=== PATIENT | male | born 1955 | race Caucasian/White ===

== ENCOUNTER → 2017-11-19 | Outpatient (CLI) | payer OTHER ==
[~2017-11-19] MED LIST: ALLOPURINOL 10100 M1 PO; ASPIR 8181 MG PO; BRILINTA90 MG PO; CRESTOR10 MG PO; FLOMAX0.4 MG PO; FLOVENT DISKUS50 MCG INH; GLIPIZIDE 10 MG10 MG PO; GLIPIZIDE-METF1 EAC1 PO; GLUCOTROL5 MG PO; HYDROCODONE-APA1 TA1 PO; IMDUR 60 MG TAB60 M1 PO; LASIX 40 MG TAB40 M2 PO; LIPITOR 20 MG T20 M1 PO; LYRICA150 MG PO; MELATONIN3 MG PO; NITROGLYCERIN0.4 MG SUBLING; POTASSIUM20 PO; PRINIVIL20 M1 PO; RANEXA500 MG PO; TENORMIN50 MG PO; VITAMIN B122500 MCG PO; XANAX1 MG PO; ZOLPIDEM TARTRA10 MG PO
== END ==
LOC: M.RAD 16:41
DX: J98.4 Other disorders of lung (principal); Z95.818 Presence of other cardiac implants and grafts

== ENCOUNTER → 2018-04-24 | Outpatient (CLI) | payer OTHER | LOC: M.ULTRA 04-22 11:30 | DX: R10.11 Right upper quadrant pain (principal); R11.0 Nausea; I10 Essential (primary) hypertension; E11.9 Type 2 diabetes mellitus without complications; I25.10 Atherosclerotic heart disease of native coronary artery without angina pectoris; Z90.49 Acquired absence of other specified parts of digestive tract ==

== ENCOUNTER → 2021-09-15 | Outpatient (CLI) | payer OTHER ==
[2021-09-15] VITALS (7 sets, daily range): BP systolic 96–104; BP diastolic 42–52
[~2021-09-15] VITALS: Ht 182.9 cm; Wt 120.2 kg
[~2021-09-15] MED LIST changes: +AMBIEN CR12.5 MG PO; +BACLOFEN 10MG T10 MG PO; +EFFIENT10 MG PO; +ISOSORBIDE MON120 MG PO; +LYRICA200 MG PO; +NORCO 10-325 T1 EACH PO; +PRINIVIL40 MG PO; +RANEXA1000 MG PO; +ZETIA10 MG PO
[2021-09-15 12:12] LABS: HEMATOCRIT 40.2 % (42.0-52.0); HEMOGLOBIN 13.3 gm/dL (14.0-18.0); MCH 30.6 pg (26.0-34.0); MCV 92.9 fL (80.0-100.0); MPV 8.5 fl. (7.2-11.1); RBC 4.33 mil/uL (4.50-6.00); RDW-CV 17.7 % (10.5-14.5); WBC 7.2 thou/uL (4.0-11.0)
[2021-09-15 12:23] LABS: ANION GAP 7 mmol/L (7-16); BUN 28 mg/dL (7-18); CALCIUM 8.7 mg/dL (8.5-10.1); CHLORIDE 101 mmol/L (98-107); CO2 29 mmol/L (21-32); CREATININE 1.6 mg/dL (0.6-1.3); GLUCOSE 129 mg/dL (70-99); POTASSIUM 4.9 mmol/L (3.5-5.1); SODIUM 137 mmol/L (136-145)
[2021-09-15 12:25] LABS: APTT 28.8 Seconds (25.0-31.3); PROTIME 10.5 Seconds (9.20-11.50)
[2021-09-15 12:27] LABS: ALBUMIN 3.8 g/dL (3.4-5.0); ALKALINE PHOSPHATASE 76 U/L (46-116); CHOLESTEROL 99 mg/dL (<200); HDL CHOLESTEROL 34 mg/dL (>40); LDL CHOLESTEROL 42 mg/dL (<100); SGOT 33 U/L (15-37); SGPT 39 U/L (30-65); TC:HDL 2.9 Ratio (Not establshd); TOTAL BILIRUBIN 0.5 mg/dL (<0.1-1.0); TOTAL PROTEIN 7.1 g/dL (6.4-8.2); TRIGLYCERIDE 119 mg/dL (<150); VLDL 24 mg/dL (<40)
[2021-09-15 12:28] LABS: SERUM ASSESSMENT CLEAR
--- NOTE | 2021-09-15 17:47 | CARD ---
[address] [address] CARDIAC CATH REPORT Name: MIKIALLIE MOUNA Room: [facility]#: [id number] Admission: 09/15/21 Attend Phys: Cyril Borjas MD Discharge: Date of : 59 Report #: [id number] THIS REPORT FOR: cc: Lala Manriquez Ahmad W. DO Liston, Michael J. MD [facility] ~ APPROVED REPORT Study performed: 09/15/2021 12:31:13 Patient Details Patient Status: Out-Patient Room #: The patient is a 66 year-old male Event Personnel Cyril Borjas [employer] Officer, Gunjan Qiu RN RN, Adri Lock Kramer, Jessie RTR Monitor Procedures Performed Art Access - R femoral artery Left Heart Cath w/or w/o Coronaries Hemostasis w/ Mynx Admission/Lab Medications/Medications given during procedure Oxygen Nasal cannula 2 l per min, 0.9% Sodium Chloride IV 75 ml per hr, Lidocaine Subcut 16 ml Procedure Narrative The patient was brought electively to the Cardiac Catheterization Laboratory and was prepped and draped in a sterile manner. The right femoral was infiltrated with 2% Lidocaine subcutaneous anesthesia. IV conscious sedation was used throughout procedure with appropriate monitoring and was performed in the presence of a registered nurse who was an independent trained observer other than the physician performing the procedure. A 6fr Ultimum Sheath sheath was inserted into the right femoral artery. Coronary angiography was performed using coronary diagnostic catheters. The right coronary system was accessed and visualized with a Diagnostic 6 Fr JR 4 catheter. The left coronary system was accessed and visualized with a Diagnostic 6 Fr JL 4 catheter. The left ventricle was accessed and visualized with a Diagnostic 6 Fr Pigtail catheter. Left ventricular/Aortic Valve gradient assessed via catheter pullback. Left ventriculogram was performed in GUERRA projection. Pre-demployment femoral angiogram was performed . Closure device was deployed with a Fr MynxGrip 6/7F. The patient tolerated the procedure well and there [place] [address] CARDIAC CATH REPORT Name: ALLIE LIVINGSTON MOUNA Room: [facility]#: [id number] Admission: 09/15/21 Attend Phys: Cyril Borjas MD Discharge: Date of : 59 Report #: [id number] associated with the procedure. There was no hematoma. Intraoperative Conscious Sedation Sedation start time: 12:52 Case end Time: 13:05 Fentanyl 50 mcg Versed 2 mg Fluoro Time: 1.5 minutes Dose: DAP 39531 cGycm2 719 mGy Contrast Type and Amount: Visipaque 90 mL Diagnostic Cath Left Main The left main coronary artery appears normal and bifurcates into a left anterior descending and circumflex coronary artery. LAD The left anterior descending coronary artery is minimally plaqued proximally. There is a widely patent stent at the takeoff of the first diagonal branch. The mid vessel is mild to moderately plaqued up to 30%. Diagonal 1 There is a widely patent stent in the proximal portion of the first diagonal branch. Circumflex The circumflex coronary artery is mildly, 20%, plaque proximally. The mid and distal vessel are free of significant disease. OM1 A large branched first obtuse marginal has approximately 40% narrowing at a bifurcation proximally. The remainder the vessel is normal. OM2 A small in caliber second obtuse marginal branch is normal. Right Coronary The right coronary artery appears to be stented from the proximal to distal vessel with no in-stent restenosis. R PDA Mild 20% plaquing in the proximal portion of the PDA. RPLV A small posterior lateral branch is diffusely mildly plaqued. Left Ventriculography The left ventricle is normal in size with normal contractility. The left ventricular ejection fraction is estimated to be 65%. Hemodynamics The aortic pressure is 92/44 mmHg with a mean of 55 mmHg. The left ventricular pressure is 182/1 mmHg with a mean of mmHg. The left ventricular end diastolic pressure is 20 [place] [address] CARDIAC CATH REPORT Name: ALLIE LIVINGSTON MOUNA Room: [facility]#: [id number] Admission: 09/15/21 Attend Phys: Cyril Borjas MD Discharge: Date of : 59 Report #: [id number] Conclusion 1. Widely patent stents noted in the first diagonal and proximal to mid LAD in bifurcating fashion. 2. Widely patent stents from the proximal to distal right coronary artery. 3. Mild plaquing without hemodynamically significant stenoses in the remaining vessels. 4. Normal left ventricular systolic function. 5. Mildly elevated left ventricular end-diastolic pressure. Recommendations 1. Continue current medical management and aggressive risk factor modification. <ELECTRONICALLY SIGNED> By: Cyril Borjas MD, [facility] 09/15/21 [phone] 174Micbradly Borjas MD, FACC /INF
--- NOTE | 2021-09-16 11:17 | EKG ---
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1955 Requested By: Cyril Borjas Order Number: [id number] Reading MD: Jayden Walters Measurements Intervals [place] Rate: 60 P: 28 VT: 193 QRS: 17 QRSD: 85 T: 33 QT: 394 QTc: 394 Interpretive Statements Sinus rhythm High ST segment takeoff in multiple leads most compatible with early repolarization Compared to ECG 05/29/2017 10:53:10 No significant interval change Electronically Signed On 09-16-2021 11:16:46 [employer] by Jayden Walters [email or web address] <ELECTRONICALLY SIGNED> By: Jayden Walters MD, [facility] 09/16/21 1116 1158 [id number] Jayden Walters MD, [facility] /EPI
== END | disposition home or self-care (01) ==
LOC: M.CL 11:10
PROVIDERS: ATTEND Internal Medicine Cardiovascular Disease
DX: I25.10 Atherosclerotic heart disease of native coronary artery without angina pectoris (principal); I11.0 Hypertensive heart disease with heart failure; I50.9 Heart failure, unspecified; E11.40 Type 2 diabetes mellitus with diabetic neuropathy, unspecified; E78.5 Hyperlipidemia, unspecified; M10.9 Gout, unspecified; M19.90 Unspecified osteoarthritis, unspecified site; Z98.890 Other specified postprocedural states; Z79.899 Other long term (current) drug therapy; Z79.82 Long term (current) use of aspirin; Z20.822 Contact with and (suspected) exposure to COVID-19

== ENCOUNTER → 2021-09-20 | Outpatient (CLI) | payer OTHER | LOC: M.ULTRA 12:49 | PROVIDERS: ATTEND Internal Medicine Cardiovascular Disease | DX: R10.31 Right lower quadrant pain (principal); I25.10 Atherosclerotic heart disease of native coronary artery without angina pectoris ==